=== PATIENT | female | born 1975 | race Caucasian/White ===

== ENCOUNTER 2017-12-15 07:53 | Outpatient (CLI) | payer BC, OTHER ==
--- NOTE | 2017-12-15 11:16 | CT ---
CT ABDOMEN AND PELVIS WITH AND WITHOUT IV CONTRAST: Date: 12/15/17 HISTORY: 42-year-old female with pain in the left flank and epigastric area. History of nephrostomy tube on th e left a year ago. Hysterectomy in August 2016. Abnormal pancreatic enzymes on lab work (increased l actase). FINDINGS: There is a 4.0 mm lung nodule in the anterior aspect of the right middle lobe. A small hiatal hernia is present. The liver demonstrates decreased attenuation compared to the spleen consistent with fatty infiltration. No calcified gallstones are seen. The spleen and right adrenal gland are normal. There is an approximately 1.0 cm left adrenal nodule with attenuation values less than 10 Hounsfield units on the noncontrasted study, consistent with benign adenoma. No pancreatic calcifications are seen. No peripancreatic inflammation or fluid is identified. There i s normal contrast enhancement of the pancreas. No calculi seen in the kidneys, ureters, or the urinary bladder. There is left-sided hydronephrosis. No abnormal ureteral dilatation is seen. No calculi noted in the kidneys, ureters, or the urinary triston dder. No right-sided hydroureteronephrosis is identified. Postcontrast images demonstrate no evidence of renal mass. No free air, free fluid, or lymphadenopathy is noted in the abdomen or pelvis. The small bowel loops are not abnormally dilated. Normal appearing appendix is seen. There is mild sigmoid diverticulosis. The patient is post hysterectomy. There is no evidence of aneurysmal dilatation of the abdominal aort a. There are mild degenerative changes in the lower lumbar spine. There is a 12mm nodular density in the inferomedial aspect of the left breast. IMPRESSION: 1. 4.0 mm right lung nodule. 2. Fatty liver. 3. Small hiatal hernia. 4. No evidence of pancreatic abnormalities. 5. No CT evidence of urinary tract calculi or renal masses. 6. Left-sided hydronephrosis. 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 Further evaluation with radionu clide diuretic renography would be helpful. 7. Sigmoid diverticulosis. 8. 12.0 mm left breast nodule. Correlation with mammography and left breast ultrasound would be help ful. 9. left adrenal adenoma. POS: [facility]
[2017-12-15] MEDS ORDERED: Iopamidol 370 76% 100 ML VIAL ONE (12:56)
== END 2017-12-15 07:54 | disposition home or self-care (01) ==
LOC: CT 07:53
PROVIDERS: ATTEND Internal Medicine
DX: R10.13 Epigastric pain (principal); D35.02 Benign neoplasm of left adrenal gland; N63.20 Unspecified lump in the left breast, unspecified quadrant; R91.1 Solitary pulmonary nodule; K44.9 Diaphragmatic hernia without obstruction or gangrene; K76.0 Fatty (change of) liver, not elsewhere classified; N13.30 Unspecified hydronephrosis; K57.30 Diverticulosis of large intestine without perforation or abscess without bleeding
CPT/HCPCS: 74178

== ENCOUNTER 2018-01-05 07:23 | Outpatient (CLI) | payer BC ==
--- NOTE | 2018-01-05 09:07 | ULT ---
RIGHT UPPER QUADRANT ULTRASOUND: Date: 01/05/18 HISTORY: Nausea. FINDINGS: The liver demonstrates increased echogenicity consistent with fatty infiltration. No focal mass or in trahepatic ductal dilatation is seen. No gallstones, gallbladder wall thickening, or pericholecystic fluid is identified. There is a small amount of sludge in the gallbladder. The common duct measures 5 .0 mm in diameter. The right kidney and pancreas appear normal. No free fluid is seen in Morison's po uch. IMPRESSION: 1. Fatty liver. 2. Gallbladder sludge without evidence of cholelithiasis. POS: OFF
== END 2018-01-05 07:24 | disposition home or self-care (01) ==
LOC: ULT 07:23
PROVIDERS: ATTEND Internal Medicine
DX: K76.0 Fatty (change of) liver, not elsewhere classified (principal); K82.9 Disease of gallbladder, unspecified
CPT/HCPCS: 76705

== ENCOUNTER 2018-01-16 10:58 | Outpatient (CLI) | payer BC ==
[2018-01-16] MEDS ORDERED: Furosemide 40 MG/4 ML VIAL ONE (14:48)
--- NOTE | 2018-01-16 15:22 | NM ---
RADIONUCLIDE DIURETIC RENOGRAM: HISTORY: Hydronephrosis. RADIPHARMACEUTICAL: 8.8 mCi Technetium 99m MAG-III injected intravenously. DIURETIC: IV Lasix 40 mg injected at 20 minutes. FINDINGS: Correlation is made with the CT scan of 12/15/17. There is good blood flow and tracer extraction by the kidneys. The ___ differential function measure s 50% on either side. There is tracer retention in the left pelvicalceal systems compared to the rig ht on the 3 Lasix images with good tracer excretion on the post-diuretic images with downsloping stefano gram curves. There is normal excretion on the right. Tracer material is also seen in the urinary bl adder. IMPRESSION: No evidence of high-grade obstruction. POS: [facility]
== END 2018-01-16 10:59 | disposition home or self-care (01) ==
LOC: NM 10:58
PROVIDERS: ATTEND Urology
DX: N13.30 Unspecified hydronephrosis (principal)
CPT/HCPCS: 78708; A4641; A9562; J1940

== ENCOUNTER 2019-04-26 15:08 | Outpatient (CLI) | payer BC ==
--- NOTE | 2019-04-26 15:41 | ULT ---
Exam: Bilateral renal ultrasound HISTORY: Hydronephrosis COMPARISON: CT the abdomen and pelvis with and without contrast dated December 15, 2017 FINDINGS: Right kidney: Normal cortical echotexture. No hydronephrosis. Right renal cortical thickness was 1.7 cm. Right kidney measurements: 10.5 x 5.7 x 5.7 cm. Left kidney: There is stable mild left hydronephrosis. Left renal cortical thickness is 1.5 cm. Left kidney measurements: 11.6 x 5.3 x 5.6 cm. Urinary bladder: Prevoid bladder volume of 95 cc. Postvoid bladder volume of 19 cc. IMPRESSION: Stable mild left hydronephrosis. No significant amount of renal cortical atrophy.
== END 2019-04-26 15:09 | disposition home or self-care (01) ==
LOC: BICULT 15:08
PROVIDERS: ATTEND Urology
DX: N12 Tubulo-interstitial nephritis, not specified as acute or chronic (principal); N13.39 Other hydronephrosis
CPT/HCPCS: 76770

== ENCOUNTER 2020-02-24 13:26 | Outpatient (CLI) | payer BC ==
--- NOTE | 2020-02-24 14:18 | MMO ---
Bilateral MAMMO Bilat Diag [facility]. CLINICAL HISTORY: Patient is 44 years old and is seen for diagnostic exam. The patient has the following family history of breast cancer: maternal aunt, at age 45. The patient has no personal history of cancer. VIEWS: The views performed were: bilateral craniocaudal with tomosynthesis; bilateral mediolateral oblique with tomosynthesis; and bilateral mediolateral with tomosynthesis. FILMS COMPARED: The present examination has been compared to prior imaging studies performed at [facility] on 11/20/2017, 11/27/2017, 01/12/2019 and 02/24/2020. This study has been interpreted with the assistance of computer-aided detection. MAMMOGRAM FINDINGS: The breasts are almost entirely fat. There is a stable mass seen in the left breast. There are no suspicious masses, suspicious calcifications, or new areas of architectural distortion. IMPRESSION: THERE IS NO MAMMOGRAPHIC EVIDENCE OF MALIGNANCY. A ROUTINE FOLLOW-UP MAMMOGRAM IN 1 YEAR IS RECOMMENDED. THE RESULTS OF THIS EXAM WERE SENT TO THE PATIENT. ACR BI-RADS Category 2 - Benign finding MAMMOGRAPHY NOTE: 1. A negative mammogram report should not delay a biopsy if a dominant of clinically suspicious mass is present. 2. Approximately 10% to 15% of breast cancers are not detected by mammography. 3. Adenosis and dense breasts may obscure an underlying neoplasm. Reported by: GODWIN BLANCHARD MD Electonically Signed: [id number]
--- NOTE | 2020-02-24 14:22 | ULT ---
LEFT BREAST ULTRASOUND: 02/24/20 HISTORY: Abnormal mammogram and follow-up left breast nodule. FINDINGS: Comparison made with exams of 11/27/17 and 05/25/18. Mammogram correlation from mammograms of today and 01/12/19. Sonographic evaluation of the 7 o'clock position of the left breast demonstrates a stable 1.2 cm well circumscribed hypoechoic solid mass without posterior shadowing. This is essentially stable compared to the previous exams. IMPRESSION: BIRADS 2: Benign Finding(s) Routine annual screening mammography (for women over age 40). POS: OFF
--- NOTE | 2020-02-24 14:35 | BD ---
EXAM: Bone densitometry using DEXA HISTORY: 44 yo female. Screening for osteoporosis FINDINGS: L1--bone mineral density 0.710 g/sq cm; T score -2.5 ; Z score -2.1 L2--bone mineral density 0.788 g/sq cm; T score -2.2 ; Z score -1.7 L3--bone mineral density 0.799 g/sq cm; T score -2.6 ; Z score -2.1 L4--bone mineral density 0.697 g/sq cm; T score -3.3 ; Z score -2.8 Total L1-L4--bone mineral density 0.746 g/sq cm; T score -2.7 ; Z score -2.2 Left femoral neck--bone mineral density0.680; T score -1.5 ; Z score -1.1 Total proximal left femur--bone mineral density 0.960; T score 0.1 ; Z score 0.5 IMPRESSION: Osteoporosis
== END 2020-02-24 13:27 | disposition home or self-care (01) ==
LOC: BICMAMMO 13:26
PROVIDERS: ATTEND Internal Medicine
DX: R92.2 Inconclusive mammogram (principal); M81.0 Age-related osteoporosis without current pathological fracture
CPT/HCPCS: 77066; 77080; G0279

== ENCOUNTER 2021-09-11 15:52 | Outpatient (CLI) | payer BC | END 2021-09-11 15:53 | disposition home or self-care (01) | LOC: BICMAMMO 15:52 | PROVIDERS: ATTEND Internal Medicine | DX: Z12.31 Encounter for screening mammogram for malignant neoplasm of breast (principal); Z80.3 Family history of malignant neoplasm of breast | CPT/HCPCS: 77063; 77067 ==

== ENCOUNTER 2022-06-12 14:48 | Outpatient (CLI) | payer BC | END 2022-06-12 14:49 | disposition home or self-care (01) | LOC: BICMAMMO 14:48 | PROVIDERS: ATTEND Internal Medicine | DX: M81.0 Age-related osteoporosis without current pathological fracture (principal); M85.851 Other specified disorders of bone density and structure, right thigh; M85.852 Other specified disorders of bone density and structure, left thigh | CPT/HCPCS: 77080 ==

== ENCOUNTER 2024-01-13 15:39 | Outpatient (CLI) | payer BC | END 2024-01-13 15:40 | disposition home or self-care (01) | LOC: BICMAMMO 15:39 | PROVIDERS: ATTEND Internal Medicine | DX: Z12.31 Encounter for screening mammogram for malignant neoplasm of breast (principal); Z80.3 Family history of malignant neoplasm of breast | CPT/HCPCS: 77063; 77067 ==